=== PATIENT | female | born 1960 | race Caucasian/White ===

== ENCOUNTER → 2016-10-13 | Outpatient (CLI) | payer BC, MEDICARE ==
[~2016-10-13] MED LIST: ASPIR 8181 MG PO; ATENOLOL PO; DAYPRO600 M1 PO; FIORICET W/CODE1 CAP PO; FLEXERIL5 MG PO; MEDROL DOSEPAK4 MG PO; NORFLEX100 MG PO; ROBAXIN750 MG PO; SYNTHROID0.125 MG PO; VICODIN 500 MG-1 TAB PO; VICODIN ES 7501 TAB PO; VITAMIN D PO
== END | disposition home or self-care (01) ==
LOC: MAMMO 10-06 16:00
DX: Z12.31 Encounter for screening mammogram for malignant neoplasm of breast (principal)

== ENCOUNTER → 2016-11-06 | Day surgery (SDC) | payer BC, MEDICARE ==
[~2016-11-06] VITALS: Ht 170.1 cm; Wt 81.6 kg
[~2016-11-06] MED LIST changes: +CHANTRIX0.5 MG PO; +LEVOTHYROXINE0.1 M1 PO; +LISINOPRIL10 M1 PO
--- NOTE | ~2016-11-06 | PROC NOTE ---
[place], [place] PROCEDURE NOTE NAME: DIONNE CHINO UNIT #: [id number] ROOM: DOCTOR: PAUL WETZEL MD BIRTHDATE: [birth year] DOS: 11/06/2016 PREOPERATIVE DIAGNOSIS: Decreased stool caliber. POSTOPERATIVE DIAGNOSIS: Diverticulosis. PROCEDURE: Colonoscopy. ENDOSCOPIST: Paul Wetzel MD LEAD PROCESS ENGINEER: [id number]. ANESTHESIA: MAC. INDICATIONS: This is a 56-year-old lady with a gradually decrease in the stool caliber. She also has a family history of colon cancer. It was therefore decided to take the patient to the procedure room for a colonoscopy. The procedure and its complications explained to the patient in detail preoperatively. Complications that were discussed included but were not limited to, bleeding, colon perforation, and missed lesions, she agreed to proceed. DESCRIPTION OF PROCEDURE: After identifying the patient, the patient was brought to the endoscopy suite and placed in the left lateral position. After IV sedation was administered, a timeout procedure was called. A digital rectal exam was performed, which was within normal limits. An adult colonoscope was now introduced into the anal canal and advanced sequentially into the rectum, sigmoid colon, descending colon, transverse colon and ascending colon up to the cecum. Upon reaching the cecum, the scope was withdrawn. The prep was found to be optimal. There were no obvious lesions seen in the ascending, transverse and descending colon. Upon reaching the sigmoid colon, there was found to be diverticulosis with no active bleeding or any strictures or masses. The scope was then withdrawn. Total withdrawal time was approximately 7 minutes. Upon retroflexion in the rectum, there was found to be internal hemorrhoids, which was uncomplicated. After the scope was withdrawn, the patient was taken to the recovery room in stable fashion. There were no complications. Dr. Paul Wetzel, the attending endoscopist, was present throughout the operating case. Based on these findings, the patient is recommended to have another colonoscopy in 10 years or sooner if she has any new symptoms. I will discuss these findings with her in the postoperative visit period in the office and I have discussed this with her in the postoperative area. [place], [place] PROCEDURE NOTE NAME: DIONNE CHINO UNIT #: [id number] ROOM: DOCTOR: PAUL WETZEL MD BIRTHDATE: [birth year] Paul Wetzel MD CM:PROCNOTE:PROCEDURE NOTE [id number] PAUL WETZEL MD
[2016-11-06 10:16] VITALS: BP 142/89
[2016-11-06 11:17] VITALS: BP 119/63
[2016-11-06 11:32] VITALS: BP 138/93
[2016-11-06 11:47] VITALS: BP 160/90
== END | disposition home or self-care (01) ==
LOC: SDC 11-05 11:00
DX: K57.30 Diverticulosis of large intestine without perforation or abscess without bleeding (principal); K64.8 Other hemorrhoids; Z80.0 Family history of malignant neoplasm of digestive organs; E07.9 Disorder of thyroid, unspecified; I10 Essential (primary) hypertension; Z96.651 Presence of right artificial knee joint; Z98.51 Tubal ligation status

== ENCOUNTER → 2017-04-08 | Outpatient (CLI) | payer OTHER, MEDICARE ==
[~2017-04-08] MED LIST changes: +CEPHALEXIN500 M1 PO
== END | disposition home or self-care (01) ==
LOC: US 09:53
DX: M79.661 Pain in right lower leg (principal); R60.0 Localized edema; T14.8XXA Other injury of unspecified body region, initial encounter; M79.89 Other specified soft tissue disorders; X58.XXXA Exposure to other specified factors, initial encounter; Y93.89 Activity, other specified; Y92.89 Other specified places as the place of occurrence of the external cause; Y99.8 Other external cause status

== ENCOUNTER 2017-04-10 22:05 | Emergency (ER) | payer OTHER, MEDICARE ==
[~2017-04-10] VITALS: Ht 170.1 cm; Wt 81.6 kg
[~2017-04-10 22:05] MED LIST changes: -CEPHALEXIN500 M1 PO
[2017-04-10 22:26] VITALS: BP 151/96
[2017-04-10] MEDS ORDERED: CEPHALEXIN500 M1 PO (22:50)
== END 2017-04-10 23:51 | disposition home or self-care (01) ==
LOC: ED 22:05
DX: S80.811A Abrasion, right lower leg, initial encounter (principal); M54.5 Low back pain; F17.200 Nicotine dependence, unspecified, uncomplicated; Z88.2 Allergy status to sulfonamides; Z79.899 Other long term (current) drug therapy; V19.9XXA Pedal cyclist (driver) (passenger) injured in unspecified traffic accident, initial encounter; Y93.55 Activity, bike riding; Y92.89 Other specified places as the place of occurrence of the external cause; Y99.8 Other external cause status

== ENCOUNTER → 2018-04-27 | Outpatient (CLI) | payer MEDICARE ==
[~2018-04-27] MED LIST changes: +CEPHALEXIN500 M1 PO
== END | disposition home or self-care (01) ==
LOC: RAD 13:30
DX: Z13.820 Encounter for screening for osteoporosis (principal); Z78.0 Asymptomatic menopausal state

== ENCOUNTER 2019-09-29 14:12 | Emergency (ER) | payer MEDICARE ==
[~2019-09-29] VITALS: Ht 172.7 cm; Wt 83.9 kg
[2019-09-29 14:17] VITALS: BP 154/85
[2019-09-29 15:08] LABS: BASO # 0.1 10*3/uL (0.0-0.1); BASO % 1.2 % (0.0-1.0); EOS # 0.6 10*3/uL (0.0-0.4); EOS % 11.7 % (1.0-4.0); HEMATOCRIT 40.9 % (37.0-47.0); HEMOGLOBIN 13.4 g/dl (12.0-16.0); LYMPH # 1.5 10*3/uL (1.3-4.4); LYMPH % 28.3 % (27.0-41.0); MEAN CELL VOLUME 97.6 fl (81.0-99.0); MEAN CORPUSCULAR HGB CONC 32.8 g/dl (33.0-37.0); MEAN PLATELET VOLUME 10.7 fl (9.6-12.3); MONO # 0.3 10*3/uL (0.1-1.0); MONO % 6.4 % (3.0-9.0); NEUT # 2.7 10*3/uL (2.3-7.9); NEUT % 51.8 % (47.0-73.0); PLATELET COUNT AUTOMATED 156 10*3/uL (130-400); RED BLOOD COUNT 4.19 10*6/uL (4.10-5.10); RED CELL DISTRI WIDTH 13.2 % (0-14.5); WHITE BLOOD COUNT 5.1 10*3/uL (4.8-10.8)
[2019-09-29 15:21] LABS: ALBUMIN 3.3 gm/dl (3.1-4.5); ALKALINE PHOSPHATASE 92 U/L (45-117); BUN 10 mg/dl (7-24); CHLORIDE 106 mmol/L (98-107); LIPASE 442 U/L (73-393); POTASSIUM 3.6 mmol/L (3.5-5.1); SGOT/AST 21 IU/L (3-35); SGPT/ALT 26 U/L (12-78); SODIUM 139 mmol/L (136-145); TOTAL PROTEIN 7.2 gm/dL (6.4-8.2)
[2019-09-29 15:22] LABS: TROPONIN I < 0.015 ng/ml (<0.045)
[2019-09-29] MEDS ORDERED: VENTOLIN 02.5 MG/3 M INH (17:09)
[2019-09-29] MEDS ORDERED: DOXYCYCLINE100 M3 PO (17:09)
[2019-09-29] MEDS ORDERED: PREDNISONE10 MG PO (17:09)
== END 2019-09-29 17:30 | disposition home or self-care (01) ==
LOC: ED 14:12
PROVIDERS: Emergency Medicine
DX: J20.9 Acute bronchitis, unspecified (principal); Z88.2 Allergy status to sulfonamides; Z79.899 Other long term (current) drug therapy

== ENCOUNTER → 2021-05-05 | Outpatient (CLI) | payer MEDICARE ==
[~2021-05-05] MED LIST changes: +DOXYCYCLINE100 M3 PO; +PREDNISONE10 MG PO; +VENTOLIN 02.5 MG/3 M INH
== END | disposition home or self-care (01) ==
LOC: MAMMO 12:59
PROVIDERS: ATTEND Physician Assistant
DX: Z12.31 Encounter for screening mammogram for malignant neoplasm of breast (principal)

== ENCOUNTER → 2021-06-18 | Outpatient (CLI) | payer MEDICARE | END | disposition home or self-care (01) | LOC: COVID19 16:18 | PROVIDERS: ATTEND Podiatrist Foot & Ankle Surgery | DX: Z20.822 Contact with and (suspected) exposure to COVID-19 (principal) ==

== ENCOUNTER 2022-02-15 23:37 | Emergency (ER) | payer MEDICARE ==
[2022-02-16] MEDS ORDERED: VIBRAMYCIN100 MG PO (00:02)
== END 2022-02-16 00:02 | disposition home or self-care (01) ==
LOC: ED 23:37
DX: L03.115 Cellulitis of right lower limb (principal); Z88.2 Allergy status to sulfonamides; Z79.2 Long term (current) use of antibiotics; Z79.899 Other long term (current) drug therapy; Z98.51 Tubal ligation status; Z98.890 Other specified postprocedural states

== ENCOUNTER → 2022-04-28 | Day surgery (SDC) | payer OTHER ==
[2022-04-24 13:33] VITALS: BP 180/95
[~2022-04-28] VITALS: Ht 172.7 cm; Wt 90.7 kg
[~2022-04-28] MED LIST changes: +CEFDINIR300 MG PO; +OCUFLOX 5 ML5 ML OP; +VIBRAMYCIN100 MG PO
[2022-04-28 07:30] VITALS: BP 157/95
[2022-04-28 09:23] VITALS: BP 148/85
[2022-04-28 09:40] VITALS: BP 158/88
[2022-04-28 09:55] VITALS: BP 145/93
[2022-04-28 10:09] VITALS: BP 150/87
[2022-04-28 10:25] VITALS: BP 149/90
== END | disposition home or self-care (01) ==
LOC: SDC 04-24 13:15
PROVIDERS: ATTEND Specialist
DX: H65.493 Other chronic nonsuppurative otitis media, bilateral (principal); I10 Essential (primary) hypertension; J34.9 Unspecified disorder of nose and nasal sinuses; L73.9 Follicular disorder, unspecified; Z91.09 Other allergy status, other than to drugs and biological substances; Z87.891 Personal history of nicotine dependence; Z96.653 Presence of artificial knee joint, bilateral

== ENCOUNTER 2022-05-25 23:20 | Emergency (ER) | payer OTHER ==
[~2022-05-25] VITALS: Ht 172.7 cm; Wt 81.6 kg
[2022-05-25 23:39] VITALS: BP 173/109
[2022-05-26 00:19] LABS: BASO % 0.5 % (0.0-1.0); EOS # 0.2 10*3/uL (0.0-0.4); EOS % 2.5 % (1.0-4.0); HEMATOCRIT 39.9 % (37.0-47.0); LYMPH # 1.4 10*3/uL (1.3-4.4); LYMPH % 22.7 % (27.0-41.0); MEAN CELL VOLUME 93.2 fl (81.0-99.0); MEAN CORPUSCULAR HGB 31.3 pg (27.0-31.0); MEAN CORPUSCULAR HGB CONC 33.6 g/dl (33.0-37.0); MONO # 0.5 10*3/uL (0.1-1.0); MONO % 7.6 % (3.0-9.0); NEUT % 66.4 % (47.0-73.0); PLATELET COUNT AUTOMATED 201 10*3/uL (130-400); RED BLOOD COUNT 4.28 10*6/uL (4.10-5.10); RED CELL DISTRI WIDTH 13.1 % (0-14.5); WHITE BLOOD COUNT 6.1 10*3/uL (4.8-10.8)
[2022-05-26 00:34] LABS: ALKALINE PHOSPHATASE 102 U/L (45-117); BUN 12 mg/dl (7-24); CHLORIDE 105 mmol/L (98-107); CREATININE 0.95 mg/dL (0.55-1.02); POTASSIUM 3.8 mmol/L (3.5-5.1); SGPT/ALT 22 U/L (12-78); SODIUM 138 mmol/L (136-145); TOTAL PROTEIN 7.3 gm/dL (6.4-8.2)
[2022-05-26 03:46] LABS: BILIRUBIN Negative (Negative); BLOOD Negative (Negative); CLARITY Clear (Clear); COLOR Yellow (Yellow); GLUCOSE Negative (Negative); KETONE Negative (Negative); LEUKO ESTERASE Negative (Negative); NITRITE Negative (Negative); PH 7.5 (4.5-8.0); SPECIFIC GRAVITY >= 1.030 (1.001-1.030); UROBILINOGEN 0.2 E.U./dl (0.0-1.0)
[2022-05-26 04:03] LABS: BACTERIA TRACE; EPITHELIAL CELLS 31-40
[2022-05-26] MEDS ORDERED: VIBRAMYCIN100 MG PO (04:55)
[2022-06-01] MEDS ORDERED: CIPRO500 MG PO (00:28)
== END 2022-05-26 04:56 | disposition home or self-care (01) ==
LOC: ED 23:20
PROVIDERS: Emergency Medicine
DX: I83.018 Varicose veins of right lower extremity with ulcer other part of lower leg (principal); L03.211 Cellulitis of face; Z88.2 Allergy status to sulfonamides; Z79.899 Other long term (current) drug therapy; Z98.890 Other specified postprocedural states; Z98.51 Tubal ligation status

== ENCOUNTER → 2022-06-03 | Outpatient (CLI) | payer OTHER ==
[~2022-06-03] MED LIST changes: +CIPRO500 MG PO
== END | disposition home or self-care (01) ==
LOC: US 01:27
PROVIDERS: ATTEND Nurse Practitioner Family
DX: L97.812 Non-pressure chronic ulcer of other part of right lower leg with fat layer exposed (principal); I83.10 Varicose veins of unspecified lower extremity with inflammation; I73.9 Peripheral vascular disease, unspecified; M79.661 Pain in right lower leg

== ENCOUNTER → 2022-06-09 | Outpatient (CLI) | payer OTHER | END | disposition home or self-care (01) | LOC: WOUNDCARE 03:16 | PROVIDERS: ATTEND Nurse Practitioner Family | DX: I83.018 Varicose veins of right lower extremity with ulcer other part of lower leg (principal); L97.812 Non-pressure chronic ulcer of other part of right lower leg with fat layer exposed; S80.861D Insect bite (nonvenomous), right lower leg, subsequent encounter; I83.812 Varicose veins of left lower extremity with pain; I73.9 Peripheral vascular disease, unspecified; I10 Essential (primary) hypertension; E03.9 Hypothyroidism, unspecified; F17.200 Nicotine dependence, unspecified, uncomplicated; Z79.899 Other long term (current) drug therapy; W57.XXXD Bitten or stung by nonvenomous insect and other nonvenomous arthropods, subsequent encounter ==

== ENCOUNTER → 2022-06-12 | Outpatient (CLI) | payer OTHER | END | disposition home or self-care (01) | LOC: WOUNDCARE 01:14 | PROVIDERS: ATTEND Surgery Vascular Surgery | DX: S81.851D Open bite, right lower leg, subsequent encounter (principal); I83.018 Varicose veins of right lower extremity with ulcer other part of lower leg; L97.812 Non-pressure chronic ulcer of other part of right lower leg with fat layer exposed; L02.415 Cutaneous abscess of right lower limb; E03.9 Hypothyroidism, unspecified; I73.9 Peripheral vascular disease, unspecified; I10 Essential (primary) hypertension; F17.200 Nicotine dependence, unspecified, uncomplicated; Z71.6 Tobacco abuse counseling; Z96.653 Presence of artificial knee joint, bilateral ==

== ENCOUNTER → 2022-06-19 | Outpatient (CLI) | payer OTHER | END | disposition home or self-care (01) | LOC: WOUNDCARE 00:58 | PROVIDERS: ATTEND Nurse Practitioner Family | DX: S80.861D Insect bite (nonvenomous), right lower leg, subsequent encounter (principal); I83.018 Varicose veins of right lower extremity with ulcer other part of lower leg; L97.812 Non-pressure chronic ulcer of other part of right lower leg with fat layer exposed; I73.9 Peripheral vascular disease, unspecified; I10 Essential (primary) hypertension; F17.200 Nicotine dependence, unspecified, uncomplicated; Z71.6 Tobacco abuse counseling; Z96.653 Presence of artificial knee joint, bilateral ==

== ENCOUNTER → 2023-05-11 | Outpatient (CLI) | payer MEDICARE ==
[~2023-05-11] MED LIST changes: +KIMYRSA1200 MG IV; +LEVOFLOXACIN750 M2 PO; +LISINOPRIL20 MG PO; +Rimactane,Rifa300 MG PO; +SYNTHROID,LEV175 MCG PO
== END | disposition home or self-care (01) ==
LOC: MAMMO 15:33
PROVIDERS: ATTEND Physician Assistant
DX: Z12.31 Encounter for screening mammogram for malignant neoplasm of breast (principal)

== ENCOUNTER 2024-01-16 17:42 | Emergency (ER) | payer OTHER ==
[~2024-01-16] VITALS: Ht 175.2 cm; Wt 95.3 kg
[2024-01-16 17:50] VITALS: BP 126/63
[2024-01-16] MEDS ORDERED: ACETAMINOPHEN 325 MG TAB PO ONE (18:00)
[2024-01-16 19:12] LABS: BASO % 0.3 % (0.0-1.0); EOS # 0.3 10*3/uL (0.0-0.4); EOS % 4.4 % (1.0-4.0); HEMATOCRIT 38.8 % (37.0-47.0); LYMPH # 1.4 10*3/uL (1.3-4.4); MEAN CELL VOLUME 96.8 fl (81.0-99.0); MEAN CORPUSCULAR HGB 30.4 pg (27.0-31.0); MEAN CORPUSCULAR HGB CONC 31.4 g/dl (33.0-37.0); MEAN PLATELET VOLUME 10.2 fl (9.6-12.3); MONO # 0.4 10*3/uL (0.1-1.0); MONO % 6.6 % (3.0-9.0); NEUT # 4.3 10*3/uL (2.3-7.9); NEUT % 66.4 % (47.0-73.0); PLATELET COUNT AUTOMATED 169 10*3/uL (130-400); RED BLOOD COUNT 4.01 10*6/uL (4.10-5.10); RED CELL DISTRI WIDTH 13.6 % (0-14.5); WHITE BLOOD COUNT 6.4 10*3/uL (4.8-10.8)
[2024-01-16 19:40] LABS: ACT PARTIAL THROMBO TIME 33.9 SECONDS (20.0-32.1)
[2024-01-16 19:43] LABS: ALKALINE PHOSPHATASE 102 U/L (46-116); BUN 11 mg/dl (9-23); CHLORIDE 101 mmol/L (98-107); POTASSIUM 3.7 mmol/L (3.4-5.1); SGPT/ALT 20 U/L (5-49)
[2024-01-16] MEDS ORDERED: Acetaminophen/Oxycodone 5 MG/325 MG TABLET PO ONE (21:15)
[2024-01-16] MEDS ORDERED: MELOXICAM15 MG PO (22:51)
== END 2024-01-16 23:03 | disposition home or self-care (01) ==
LOC: ED 17:42
PROVIDERS: Emergency Medicine
DX: M54.50 Low back pain, unspecified (principal); R10.2 Pelvic and perineal pain; I10 Essential (primary) hypertension; E87.6 Hypokalemia; E87.1 Hypo-osmolality and hyponatremia; E03.9 Hypothyroidism, unspecified; Z88.2 Allergy status to sulfonamides; Z96.653 Presence of artificial knee joint, bilateral; Z98.51 Tubal ligation status; Z98.890 Other specified postprocedural states; Z87.891 Personal history of nicotine dependence; W19.XXXA Unspecified fall, initial encounter

== ENCOUNTER → 2024-02-15 | Outpatient (CLI) | payer OTHER ==
[~2024-02-15] MED LIST changes: +MELOXICAM15 MG PO; +Technetium Tc 99M Medronate 1 KIT KIT IV SCH
== END | disposition home or self-care (01) ==
LOC: NM 02-11 10:00
PROVIDERS: ATTEND Orthopaedic Surgery
DX: S32.511A Fracture of superior rim of right pubis, initial encounter for closed fracture (principal); X58.XXXA Exposure to other specified factors, initial encounter; Y93.89 Activity, other specified; Y92.89 Other specified places as the place of occurrence of the external cause; Y99.8 Other external cause status

== ENCOUNTER → 2024-03-28 | Outpatient (CLI) | payer OTHER ==
[~2024-03-28] MED LIST changes: -Technetium Tc 99M Medronate 1 KIT KIT IV SCH
== END | disposition home or self-care (01) ==
LOC: LAB 12:30
PROVIDERS: ATTEND Internal Medicine
DX: R19.5 Other fecal abnormalities (principal)

== ENCOUNTER 2024-04-01 22:20 | Emergency (ER) | payer OTHER ==
[~2024-04-01] VITALS: Ht 172.7 cm; Wt 90.7 kg
[2024-04-01] MEDS ORDERED: NITROGLYCERIN 0.4 MG BOT SL ONE ×2 (22:55→23:05)
[2024-04-01 23:07] LABS: BASO % 0.3 % (0.0-1.0); EOS # 0.1 10*3/uL (0.0-0.4); EOS % 2.2 % (1.0-4.0); HEMATOCRIT 39.3 % (37.0-47.0); LYMPH # 1.4 10*3/uL (1.3-4.4); LYMPH % 23.9 % (27.0-41.0); MEAN CELL VOLUME 92.3 fl (81.0-99.0); MEAN CORPUSCULAR HGB 29.8 pg (27.0-31.0); MEAN CORPUSCULAR HGB CONC 32.3 g/dl (33.0-37.0); MONO # 0.4 10*3/uL (0.1-1.0); MONO % 7.4 % (3.0-9.0); NEUT # 3.8 10*3/uL (2.3-7.9); NEUT % 65.9 % (47.0-73.0); PLATELET COUNT AUTOMATED 207 10*3/uL (130-400); RED BLOOD COUNT 4.26 10*6/uL (4.10-5.10); RED CELL DISTRI WIDTH 13.2 % (0-14.5); WHITE BLOOD COUNT 5.8 10*3/uL (4.8-10.8)
[2024-04-01] MEDS ORDERED: Zestril,Prinivi40 MG PO (23:09)
[2024-04-01 23:28] LABS: POTASSIUM 3.5 mmol/L (3.4-5.1); TOTAL PROTEIN 7.1 gm/dL (6.0-8.0)
[2024-04-02] MEDS ORDERED: MORPHINE Sulfate 2 MG/ML SYR IV ONE ×2 (00:30→07:30)
[2024-04-02] MEDS ORDERED: HEPARIN SODIUM 250 ML IV SCH (01:50)
[2024-04-02] MEDS ORDERED: LORazepam 2 MG/ML VIAL IV ONE (03:25)
[2024-04-02] MEDS ORDERED: Metoprolol Tartrate 5 MG/5 ML VIAL IV ONE ×3 (03:25→06:50)
[2024-04-02 07:42] VITALS: BP 196/113
[2024-04-02] MEDS ORDERED: hydrALAZINE hydrochloride 20 MG/ML VIAL IV ONE (08:00)
== END 2024-04-02 08:08 | disposition short-term general hospital (02) ==
LOC: ED 22:20
PROVIDERS: Emergency Medicine
DX: I21.4 Non-ST elevation (NSTEMI) myocardial infarction (principal); N17.9 Acute kidney failure, unspecified; I10 Essential (primary) hypertension; M79.602 Pain in left arm; Z88.2 Allergy status to sulfonamides; Z96.653 Presence of artificial knee joint, bilateral; Z98.890 Other specified postprocedural states; Z98.51 Tubal ligation status; Z87.891 Personal history of nicotine dependence

== ENCOUNTER → 2024-08-29 | Outpatient (CLI) | payer MEDICARE ==
[~2024-08-29] MED LIST changes: +Zestril,Prinivi40 MG PO
== END | disposition home or self-care (01) ==
LOC: MAMMO 14:01
PROVIDERS: ATTEND Physician Assistant
DX: N63.20 Unspecified lump in the left breast, unspecified quadrant (principal); N63.10 Unspecified lump in the right breast, unspecified quadrant; R92.1 Mammographic calcification found on diagnostic imaging of breast

== ENCOUNTER → 2024-09-05 | Outpatient (CLI) | payer MEDICARE ==
[~2024-09-05] MED LIST changes: +SODIUM BICARBONATE 4.2% 5 ML VIAL ONE
[2024-09-05 10:18] LABS: ACT PARTIAL THROMBO TIME 34.4 SECONDS (20.0-32.1)
== END | disposition home or self-care (01) ==
LOC: SDC 11:00 → EDSTATUS 11:00
PROVIDERS: ATTEND Physician Assistant
DX: N63.15 Unspecified lump in the right breast, overlapping quadrants (principal); N61.0 Mastitis without abscess; N64.1 Fat necrosis of breast

== ENCOUNTER 2025-04-08 11:16 | Emergency (ER) | payer MEDICARE ==
[~2025-04-08 11:16] MED LIST changes: -SODIUM BICARBONATE 4.2% 5 ML VIAL ONE
[2025-04-08] MEDS ORDERED: Amoxicillin/Clavulanate Pota 875 MG TAB PO ONE (12:10)
[2025-04-08] MEDS ORDERED: Acetaminophen/Hydrocodone 5 MG/325 MG TABLET PO ONE (12:10)
[2025-04-08] MEDS ORDERED: OFLOXACIN 0.3% 5 ML BOTTLE OT ONE (12:10)
[2025-04-08] MEDS ORDERED: AMOX-CLAV 875-1 EACH PO (12:19)
[2025-04-08] MEDS ORDERED: PREDNISONE10 M1 PO (12:19)
[2025-04-08] MEDS ORDERED: HYDROCODONE-AC1 EAC1 PO (12:19)
== END 2025-04-08 12:56 | disposition home or self-care (01) ==
LOC: ED 11:16
DX: H92.01 Otalgia, right ear (principal); I25.2 Old myocardial infarction; E03.9 Hypothyroidism, unspecified; I10 Essential (primary) hypertension; Z86.14 Personal history of Methicillin resistant Staphylococcus aureus infection; Z87.891 Personal history of nicotine dependence; Z96.653 Presence of artificial knee joint, bilateral